=== PATIENT | female | born 1930 | race Caucasian/White ===

== ENCOUNTER 2016-05-31 08:00 | Outpatient (RCR) | payer MEDICARE, OTHER ==
[2016-05-28 07:46] VITALS: BP 108/92; PULSE 43; TEMP 98
[2016-05-29 06:41] VITALS: BP 98/80; PULSE 59; TEMP 98.1
[2016-05-30 07:56] VITALS: BP 108/48; PULSE 55; TEMP 97.9
[~2016-05-31] VITALS: Ht 152.4 cm; Wt 70.5 kg
[~2016-05-31 08:00] MED LIST: ALDACTONE50 MG PO; ALEVE 220MG220 MG PO; ALLOPURINOL300 MG PO; ALPHAGAN OPHTH D5 ML OP; AMOXICILLIN 8751 TAB PO; ARICEPT 5MG PO; ASPI325T6 PO; ASPIR-LOW81 MG PO; ASPIRIN 81M81 MG/TA2 PO; ATENOLOL25 MG PO; ATIVAN 0.50.5 MG/TAB PO; AZO-CRANBERRY450 MG PO; BENADRYL25 M2 PO; CEFTIN500 MG PO; CELEXA10 MG PO; CENTRUM SILVER1 TA1 PO; CIPRO 500MG TA500 MG PO; CLARITIN 1010 MG/TAB PO; COLACE 100100 MG/CAP PO; COMPLETE SENIOR1 TA1 PO; COREG12.5 MG PO; CRANBERRY1 CAP PO; CRANBERRY1 POW PO; CRANBERRY400 MG PO; CRANBERRY450 MG PO; CRESTOR5 MG PO; DITROPAN 5MG TAB5 MG PO; DULCOLAX TAB5 MG PO; ESTRADIOL VAG VG; FLOVENT DI50 MCG/Act NS; HEPARIN LOCK FLU5 M1 IV; HYDROCORTISO28.35 GM TP; INVANZ INJ1 G/VIAL IV; LASIX 20MG TABL20 MG PO; LEVAQUIN 5500 MG/TA1 PO; LEVAQUIN 750MG750 M1 PO; LEVSIN0.125 M1 PO; LEXAPRO 10MG10 MG PO; LOTEMAX 5 ML 5 M5 ML OD; LOTEMAX 5 ML 5 M5 ML OU; MACROBID 1100 MG/CAP; MACROBID 1100 MG/CAP PO; MIRALAX PA17 GM/Dose PO; NEURONTIN300 MG/CAP PO; NEXIUM40 MG PO; NITROSTAT0.4 MG/TAB SL; NORCO 325 MG-51 TAB PO; NORCO 325 MG-7.1 TAB PO; NS INT FLUSH 1010 ML IV; PAMELOR 10MG10 MG PO; PRAVACHOL 40MG40 MG PO; PRED FORTE 1 ML1 ML OU; PREDNISONE20 MG PO; PRILOSEC 20MG20 MG PO; PRINIVIL10 MG PO; PROBIOTIC-MAJOR PO; PYRIDIUM 100MG100 MG PO; TERAZOL0.4% VG; TYLENOL 500MG500 MG PO; TYLENOL EXTRA500 M1 PO; ULTRAM 50MG TAB50 MG PO; ULTRAM50 MG PO; VANTIN100 MG PO; VESICARE PO; ZETIA 10MG TAB10 MG PO; ZOCOR 40MG40 MG PO; ZOFRAN ODT4 MG PO; ZYLOPRIM 300MG300 MG PO
[2016-05-31 08:30] VITALS: BP 11/54; PULSE 59; TEMP 98.3
[2016-06-03] MEDS ORDERED: ULTRAM 50MG TAB50 MG PO (14:03)
[2016-06-03] MEDS ORDERED: TERAZOL0.4% VG (14:14)
[2016-06-03] MEDS ORDERED: VESICARE 5MG5 MG PO (14:14)
[2016-06-03] MEDS ORDERED: MOTRIN 200200 MG/TAB PO (14:43)
[2016-06-03] MEDS ORDERED: PYRIDIUM 100MG100 MG PO (17:28)
[2016-06-03] MEDS ORDERED: NORCO 325 MG-51 TAB PO (17:29)
[2016-07-13] MEDS ORDERED: MAGNESIUM CITR100 MG (13:52)
[2016-07-15] MEDS ORDERED: PROAIR HFA0.09 MG/AC IH (08:03)
[2016-07-15] MEDS ORDERED: CEFTIN500 MG PO (10:33)
[2016-07-15] MEDS ORDERED: ZYVOX 600MG600 MG PO (15:29)
[2016-09-17] MEDS ORDERED: FLONASE NASAL S16 GM NS (10:06)
[2016-09-17] MEDS ORDERED: PYRIDIUM 100MG100 MG PO (10:11)
[2016-09-19] MEDS ORDERED: VANCOCIN HCL1 GM IV (10:56)
== END 2016-08-26 | disposition still patient (30) ==
LOC: EUO
DX: N39.0 Urinary tract infection, site not specified (principal); Z79.2 Long term (current) use of antibiotics
CPT/HCPCS: J0696

== ENCOUNTER → 2016-09-10 | Outpatient (CLI) | payer MEDICARE, OTHER ==
[~2016-09-10] MED LIST changes: +FLONASE NASAL S16 GM NS; +MAGNESIUM CITR100 MG; +MOTRIN 200200 MG/TAB PO; +PROAIR HFA0.09 MG/AC IH; +VANCOCIN HCL1 GM IV; +VESICARE 5MG5 MG PO; +ZYVOX 600MG600 MG PO
[2016-09-10 17:58] LABS: PH 6 (5-8); SQUAMOUS EPITHELIAL 0-2 /hpf; URINE APPEARANCE Clear; URINE BACTERIA Rare /hpf; URINE BILIRUBIN Negative (NEGATIVE); URINE BLOOD 3+ (NEGATIVE); URINE COLOR Straw; URINE GLUCOSE Negative (NEGATIVE); URINE KETONE Negative (NEGATIVE); URINE UROBILINOGEN Negative (NEGATIVE); URINE WBC 20-50 /hpf
== END ==
LOC: ZCOL.LAB 16:10
PROVIDERS: Nurse Practitioner Family
DX: N39.0 Urinary tract infection, site not specified (principal)

== ENCOUNTER 2016-09-26 13:00 | Outpatient (RCR) | payer MEDICARE, OTHER ==
[2016-09-15 15:40] VITALS: BP 120/56; PULSE 85; TEMP 98.1
[2016-09-15 16:41] LABS: CALCIUM 9.3 mg/dL (8.4-10.2); CREATININE, serum 1.31 mg/dL (0.52-1.25); POTASSIUM 4.6 mmol/L (3.4-5.0)
[2016-09-16 11:15] VITALS: BP 107/50; PULSE 80; TEMP 98.8
[2016-09-17 10:51] VITALS: BP 107/63; PULSE 45; TEMP 98.4
[2016-09-18 12:10] VITALS: BP 116/44; PULSE 55; TEMP 98.5
[2016-09-19 10:30] VITALS: BP 157/57; PULSE 59; TEMP 97.7
[2016-09-20 08:07] VITALS: BP 110/48; PULSE 55; TEMP 98.4
[2016-09-21 08:07] VITALS: BP 118/63; BP 120/63; PULSE 54; PULSE 77; TEMP 98.4; TEMP 98.5
[~2016-09-26] VITALS: Ht 154.9 cm; Wt 68.0 kg
[2016-09-26 13:10] VITALS: BP 120/54; PULSE 60; TEMP 98.2
== END 2016-09-26 14:00 | disposition home or self-care (01) ==
LOC: EUO 13:00
PROVIDERS: Urology
DX: Z45.2 Encounter for adjustment and management of vascular access device (principal); N39.0 Urinary tract infection, site not specified; Z79.2 Long term (current) use of antibiotics; I51.7 Cardiomegaly; J98.11 Atelectasis
CPT/HCPCS: C1751; J1644; J3370; J7050

== ENCOUNTER → 2016-11-18 | Day surgery (SDC) | payer MEDICARE, OTHER ==
[2016-11-18 10:59] VITALS: BP 122/61; PULSE 54; TEMP 98
[2016-11-18 11:48] VITALS: BP 148/92; PULSE 56; TEMP 97.5
[2016-11-18 12:00] VITALS: BP 154/63; PULSE 56
[2016-11-18 12:15] VITALS: BP 141/67; PULSE 64
[2016-11-18 12:30] VITALS: BP 114/55; PULSE 50
[2016-11-18 13:00] VITALS: BP 115/46; PULSE 54
== END ==
LOC: SDCO 07:30
DX: N13.5 Crossing vessel and stricture of ureter without hydronephrosis (principal); Z90.5 Acquired absence of kidney; E11.9 Type 2 diabetes mellitus without complications; Z85.828 Personal history of other malignant neoplasm of skin; N39.3 Stress incontinence (female) (male)
CPT/HCPCS: C2617; J0690; J2704; J3010; J7030

== ENCOUNTER 2017-05-13 14:20 | Day surgery (SDC) | payer MEDICARE, OTHER ==
[~2017-05-13] VITALS: Ht 154.9 cm; Wt 69.0 kg
[2017-05-13 15:35] VITALS: BP 151/76; PULSE 66; TEMP 98.3
[2017-05-13] MEDS ORDERED: CRANBERRY500 M3 PO (15:59)
[2017-05-13] MEDS ORDERED: COLACE 100100 MG/CAP PO (16:00)
[2017-05-13] MEDS ORDERED: CEPHALEXIN250 M1 PO (16:01)
[2017-05-13 16:55] VITALS: BP 137/58; PULSE 63; TEMP 97.4
[2017-05-13 17:10] VITALS: BP 125/88; PULSE 66
[2017-05-13 17:25] VITALS: BP 139/61; PULSE 64
[2017-05-13] MEDS ORDERED: LEVAQUIN 5500 MG/TA1 PO (17:27)
== END 2017-05-13 18:00 | disposition home or self-care (01) ==
LOC: SDCO 14:20
DX: N13.5 Crossing vessel and stricture of ureter without hydronephrosis (principal); I25.10 Atherosclerotic heart disease of native coronary artery without angina pectoris; E11.9 Type 2 diabetes mellitus without complications; I35.8 Other nonrheumatic aortic valve disorders; M10.9 Gout, unspecified; F03.90 Unspecified dementia, unspecified severity, without behavioral disturbance, psychotic disturbance, mood disturbance, and anxiety; I10 Essential (primary) hypertension; E78.5 Hyperlipidemia, unspecified; I25.2 Old myocardial infarction; E67.8 Other specified hyperalimentation; K21.9 Gastro-esophageal reflux disease without esophagitis; M35.3 Polymyalgia rheumatica; Z85.850 Personal history of malignant neoplasm of thyroid; Z95.5 Presence of coronary angioplasty implant and graft; Z90.49 Acquired absence of other specified parts of digestive tract; Z90.710 Acquired absence of both cervix and uterus; Z90.5 Acquired absence of kidney; Z85.828 Personal history of other malignant neoplasm of skin; Z82.49 Family history of ischemic heart disease and other diseases of the circulatory system; Z83.3 Family history of diabetes mellitus; Z82.5 Family history of asthma and other chronic lower respiratory diseases
CPT/HCPCS: C1769; C2617; J0690; J2405; J2704; J3010; J7120

== ENCOUNTER 2017-07-08 08:43 | Emergency (ER) | payer MEDICARE, OTHER ==
[~2017-07-08] VITALS: Ht 157.5 cm; Wt 68.2 kg
[~2017-07-08 08:43] MED LIST changes: +CEPHALEXIN250 M1 PO; +CRANBERRY500 M3 PO
[2017-07-08 08:45] VITALS: TEMP 98.4
[2017-07-08 09:19] LABS: COLLECTION METHOD CLEAN CATCH
[2017-07-08 09:32] LABS: PH 7 (5-8); SQUAMOUS EPITHELIAL 0-2 /hpf; URINE APPEARANCE Clear; URINE BACTERIA None Seen /hpf; URINE BILIRUBIN Negative (NEGATIVE); URINE BLOOD 2+ (NEGATIVE); URINE COLOR Straw; URINE GLUCOSE Negative (NEGATIVE); URINE KETONE Negative (NEGATIVE); URINE LEUKOCYTE ESTERASE Negative (NEGATIVE); URINE PROTEIN(semi-quant) Negative (NEGATIVE); URINE UROBILINOGEN Negative (NEGATIVE)
[2017-07-08 09:35] LABS: BASO % 0.7 % (0.0-2.0); EOS # 0.1 (0.0-0.7); EOS % 3.2 % (0-4.0); GRAN # 2.3 (1.4-6.5); GRAN % 56.1 % (42.2-75.2); HEMATOCRIT 37.6 % (37.0-47.0); HEMOGLOBIN 12.5 g/dl (12.5-16.0); LYMPH # 1.2 (1.2-3.4); LYMPH % 30.2 % (20.0-51.0); MEAN CELL VOLUME 89 fl (80.0-100.0); MEAN CORPUSCULAR HEMOGLOBIN 30 pg (27.0-31.0); MEAN CORPUSCULAR HGB CONC 33 g/dl (33.0-37.0); MEAN PLATELET VOLUME 9.2 fl (7.4-10.4); MONO # 0.4 (0.1-0.6); MONO % 9.6 % (1.7-9.3); PLATELET COUNT 129 K/mm3 (130-400); RED BLOOD COUNT 4.21 M/mm3 (4.10-5.30); WHITE BLOOD COUNT 4.1 K/mm3 (4.8-10.8)
[2017-07-08 09:45] LABS: ADJUSTED CALCIUM 9.4 mg/dL (8.4-10.2); ALANINE AMINOTRANSFERASE 30 U/L (9-52); ALBUMIN 4.2 gm/dL (3.5-5.0); ALKALINE PHOSPHATASE 83 U/L (50-136); ANION GAP 8 mmol/L (7-16); BILIRUBIN,TOTAL 0.4 mg/dL (0.0-1.0); BLOOD UREA NITROGEN 21 mg/dL (7-17); CALCIUM 9.6 mg/dL (8.4-10.2); CARBON DIOXIDE 27 mmol/L (22-30); CHLORIDE 98 mmol/L (98-107); CREATININE, serum 0.98 mg/dL (0.52-1.25); GLUCOSE 91 mg/dL (74-106); POTASSIUM 4.6 mmol/L (3.4-5.0); SODIUM 133 mmol/L (137-145); TOTAL PROTEIN 6.3 gm/dL (6.4-8.2)
[2017-07-08 09:56] LABS: TROPONIN-I < 0.012 ng/mL (0.000-0.034)
[2017-07-08] MEDS ORDERED: LEVSIN 0.10.125 MG/T PO (10:37)
[2017-07-08 12:58] VITALS: BP 133/60; PULSE 56
== END 2017-07-08 12:58 | disposition home or self-care (01) ==
LOC: COL.ER 08:43
PROVIDERS: Emergency Medicine
DX: R20.0 Anesthesia of skin (principal); R10.30 Lower abdominal pain, unspecified; E11.9 Type 2 diabetes mellitus without complications; I10 Essential (primary) hypertension; I25.10 Atherosclerotic heart disease of native coronary artery without angina pectoris; E78.5 Hyperlipidemia, unspecified; F03.90 Unspecified dementia, unspecified severity, without behavioral disturbance, psychotic disturbance, mood disturbance, and anxiety; Z79.82 Long term (current) use of aspirin; Z96.0 Presence of urogenital implants; Z90.5 Acquired absence of kidney

== ENCOUNTER 2018-03-09 13:13 | Day surgery (SDC) | payer MEDICARE, OTHER ==
[~2018-03-09] VITALS: Ht 154.9 cm; Wt 67.3 kg
[~2018-03-09 13:13] MED LIST changes: +CENTRUM SILVER1 TAB PO; +COREG 6.256.25 MG/TA PO; +LEVSIN 0.10.125 MG/T PO; +PRIL40 PO
[2018-03-09] MEDS ORDERED: NEURONTIN100 MG/CAP PO (13:58)
[2018-03-09] MEDS ORDERED: MYRBETR50MG PO (13:59)
[2018-03-09] MEDS ORDERED: ATIVAN 0.50.5 MG/TAB PO (14:07)
[2018-03-09] MEDS ORDERED: ASPIRIN 32325 MG/TAB PO (14:12)
[2018-03-09] MEDS ORDERED: CEPHALEXIN250 M1 PO (14:19)
[2018-03-09 14:32] VITALS: BP 126/76; PULSE 65; TEMP 98.4
[2018-03-09 15:35] VITALS: BP 134/56; PULSE 70; TEMP 98.8
[2018-03-09 15:50] VITALS: BP 117/69; PULSE 69
[2018-03-09 16:05] VITALS: BP 129/56; PULSE 69
[2018-03-09 16:20] VITALS: BP 130/53; PULSE 67
[2018-03-09 16:35] VITALS: BP 125/47; PULSE 72
[2018-03-09] MEDS ORDERED: CEPHALEXIN500 M1 PO (16:46)
[2018-03-09] MEDS ORDERED: PYRIDIUM 100MG100 MG PO (16:46)
== END 2018-03-09 17:00 | disposition home or self-care (01) ==
LOC: SDCO 13:13
DX: N13.1 Hydronephrosis with ureteral stricture, not elsewhere classified (principal); I25.10 Atherosclerotic heart disease of native coronary artery without angina pectoris; E11.9 Type 2 diabetes mellitus without complications; M10.9 Gout, unspecified; E78.5 Hyperlipidemia, unspecified; E67.8 Other specified hyperalimentation; I25.2 Old myocardial infarction; K21.9 Gastro-esophageal reflux disease without esophagitis; M35.3 Polymyalgia rheumatica; M19.90 Unspecified osteoarthritis, unspecified site; G43.909 Migraine, unspecified, not intractable, without status migrainosus; F03.90 Unspecified dementia, unspecified severity, without behavioral disturbance, psychotic disturbance, mood disturbance, and anxiety; I35.8 Other nonrheumatic aortic valve disorders; G89.29 Other chronic pain; Z90.49 Acquired absence of other specified parts of digestive tract; Z90.710 Acquired absence of both cervix and uterus; Z90.5 Acquired absence of kidney; Z88.1 Allergy status to other antibiotic agents; Z88.8 Allergy status to other drugs, medicaments and biological substances; Z88.0 Allergy status to penicillin; Z85.828 Personal history of other malignant neoplasm of skin; Z82.49 Family history of ischemic heart disease and other diseases of the circulatory system; Z83.3 Family history of diabetes mellitus; Z82.5 Family history of asthma and other chronic lower respiratory diseases
CPT/HCPCS: C1769; C2617; J0690; J2405; J2704; J3010; J7030

== ENCOUNTER → 2018-05-24 | Outpatient (CLI) | payer MEDICARE, OTHER ==
[~2018-05-24] MED LIST changes: +ASPIRIN 32325 MG/TAB PO; +CEPHALEXIN500 M1 PO; +MYRBETR50MG PO; +NEURONTIN100 MG/CAP PO
[2018-05-24 15:20] LABS: COLLECTION METHOD CLEAN CATCH
[2018-05-24 15:33] LABS: MUCOUS Present /lpf; PH 7 (5-8); SQUAMOUS EPITHELIAL 0-2 /hpf; URINE APPEARANCE Cloudy; URINE BACTERIA Rare /hpf; URINE BILIRUBIN Negative (NEGATIVE); URINE BLOOD Negative (NEGATIVE); URINE COLOR Yellow; URINE GLUCOSE Negative (NEGATIVE); URINE KETONE Negative (NEGATIVE); URINE LEUKOCYTE ESTERASE 3+ (NEGATIVE); URINE NITRATE Positive (NEGATIVE); URINE PROTEIN(semi-quant) Negative (NEGATIVE); URINE UROBILINOGEN Negative (NEGATIVE)
[2018-05-24 15:34] LABS: URINE WBC >50 /hpf
== END ==
LOC: ZCOL.LAB 15:13
PROVIDERS: Internal Medicine Infectious Disease
DX: N39.0 Urinary tract infection, site not specified (principal)

== ENCOUNTER 2018-09-24 14:49 | Emergency (ER) | payer MEDICARE, OTHER ==
[~2018-09-24] VITALS: Ht 157.5 cm; Wt 64.5 kg
[2018-09-24 14:59] VITALS: TEMP 99
[2018-09-24 15:47] LABS: BASO % 0.6 % (0.0-2.0); EOS # 0.1 (0.0-0.7); EOS % 1.3 % (0-4.0); GRAN # 4.5 (1.4-6.5); HEMATOCRIT 37.8 % (37.0-47.0); HEMOGLOBIN 12.5 g/dl (12.5-16.0); LYMPH % 15.8 % (20.0-51.0); MEAN CELL VOLUME 88 fl (80.0-100.0); MEAN CORPUSCULAR HEMOGLOBIN 29 pg (27.0-31.0); MEAN CORPUSCULAR HGB CONC 33 g/dl (33.0-37.0); MEAN PLATELET VOLUME 9.9 fl (7.4-10.4); MONO # 0.6 (0.1-0.6); PLATELET COUNT 146 K/mm3 (130-400); RED BLOOD COUNT 4.32 M/mm3 (4.10-5.30); REDCELL DISTRIBUTION WIDTH-CV 15.2 % (11.5-14.5)
[2018-09-24 15:59] LABS: ALANINE AMINOTRANSFERASE 19 U/L (9-52); ALBUMIN 4.1 gm/dL (3.5-5.0); ALKALINE PHOSPHATASE 99 U/L (50-136); ANION GAP 8 mmol/L (7-16); AST,SGOT 23 U/L (15-37); BILIRUBIN,TOTAL 0.6 mg/dL (0.0-1.0); BLOOD UREA NITROGEN 12 mg/dL (7-17); CALCIUM 9.9 mg/dL (8.4-10.2); CARBON DIOXIDE 28 mmol/L (22-30); CHLORIDE 96 mmol/L (98-107); CREATININE, serum 0.98 mg/dL (0.52-1.25); GLUCOSE 107 mg/dL (74-106); POTASSIUM 4.1 mmol/L (3.4-5.0); SODIUM 133 mmol/L (137-145)
[2018-09-24 16:11] LABS: TROPONIN-I < 0.012 ng/mL (0.000-0.035)
[2018-09-24 16:19] LABS: COLLECTION METHOD CLEAN CATCH
[2018-09-24 16:27] LABS: MUCOUS Present /lpf; PH 6 (5-8); SQUAMOUS EPITHELIAL None Seen /hpf; URINE APPEARANCE Hazy; URINE BACTERIA None Seen /hpf; URINE BILIRUBIN Negative (NEGATIVE); URINE BLOOD Negative (NEGATIVE); URINE COLOR Yellow; URINE GLUCOSE Negative (NEGATIVE); URINE KETONE Negative (NEGATIVE); URINE LEUKOCYTE ESTERASE 3+ (NEGATIVE); URINE NITRATE Negative (NEGATIVE); URINE PROTEIN(semi-quant) Negative (NEGATIVE); URINE UROBILINOGEN Negative (NEGATIVE)
[2018-09-24] MEDS ORDERED: OMNICEF 300MG300 MG PO ×3 (17:34→17:37)
[2018-09-24 18:44] VITALS: BP 133/63; PULSE 60
== END 2018-09-24 18:44 | disposition home or self-care (01) ==
LOC: COL.ER 14:49
PROVIDERS: Nurse Practitioner
DX: N39.0 Urinary tract infection, site not specified (principal); E11.9 Type 2 diabetes mellitus without complications; I10 Essential (primary) hypertension; Z79.82 Long term (current) use of aspirin
CPT/HCPCS: A4216; J0696; J7030

== ENCOUNTER 2018-10-10 21:44 | Inpatient (IN) | payer MEDICARE ==
[~2018-10-10] VITALS: Ht 154.9 cm; Wt 74.7 kg
[~2018-10-10 21:44] MED LIST changes: +MYRBETR25MG PO; -MYRBETR50MG PO; +OMNICEF 300MG300 MG PO
[2018-10-10 22:26] LABS: BASO # 0.1 (0.0-0.2); BASO % 0.7 % (0.0-2.0); EOS # 0.2 (0.0-0.7); EOS % 2.7 % (0-4.0); GRAN # 3.7 (1.4-6.5); GRAN % 55.4 % (42.2-75.2); HEMOGLOBIN 11.4 g/dl (12.5-16.0); LYMPH # 2.2 (1.2-3.4); LYMPH % 32.2 % (20.0-51.0); MEAN CELL VOLUME 88 fl (80.0-100.0); MEAN CORPUSCULAR HEMOGLOBIN 29 pg (27.0-31.0); MEAN CORPUSCULAR HGB CONC 33 g/dl (33.0-37.0); MEAN PLATELET VOLUME 9.7 fl (7.4-10.4); MONO # 0.6 (0.1-0.6); MONO % 8.7 % (1.7-9.3); PLATELET COUNT 136 K/mm3 (130-400); RED BLOOD COUNT 3.93 M/mm3 (4.10-5.30)
[2018-10-10 22:27] LABS: HEMATOCRIT 34.5 % (37.0-47.0)
[2018-10-10] MEDS ORDERED: CEFTIN 250250 MG/TAB PO (22:35)
[2018-10-10 22:37] LABS: ALANINE AMINOTRANSFERASE 17 U/L (9-52); ALBUMIN 3.8 gm/dL (3.5-5.0); ALKALINE PHOSPHATASE 78 U/L (50-136); ANION GAP 9 mmol/L (7-16); AST,SGOT 21 U/L (15-37); BILIRUBIN,TOTAL 0.2 mg/dL (0.0-1.0); BLOOD UREA NITROGEN 21 mg/dL (7-17); CALCIUM 9.9 mg/dL (8.4-10.2); CARBON DIOXIDE 29 mmol/L (22-30); CHLORIDE 96 mmol/L (98-107); CREATININE, serum 1.12 mg/dL (0.52-1.25); GLUCOSE 91 mg/dL (74-106); LIPASE 184 U/L (23-300); POTASSIUM 4.1 mmol/L (3.4-5.0); SODIUM 134 mmol/L (137-145); TOTAL PROTEIN 6.4 gm/dL (6.4-8.2)
[2018-10-10 22:38] LABS: C-REACTIVE PROTEIN < 0.5 mg/dL (0.0-0.9)
[2018-10-10 22:40] LABS: COLLECTION METHOD CATHETER
[2018-10-10 22:46] LABS: TROPONIN-I < 0.012 ng/mL (0.000-0.035)
[2018-10-10 22:49] LABS: PH 6 (5-8); SQUAMOUS EPITHELIAL None Seen /hpf; URINE APPEARANCE Hazy; URINE BACTERIA Rare /hpf; URINE BILIRUBIN Negative (NEGATIVE); URINE BLOOD 2+ (NEGATIVE); URINE CALCIUM OXALATE CRYSTAL Present /hpf; URINE COLOR Yellow; URINE GLUCOSE Negative (NEGATIVE); URINE KETONE Negative (NEGATIVE); URINE LEUKOCYTE ESTERASE 2+ (NEGATIVE); URINE NITRATE Negative (NEGATIVE); URINE PROTEIN(semi-quant) Negative (NEGATIVE); URINE UROBILINOGEN Negative (NEGATIVE)
[2018-10-10] MEDS ORDERED: IMODIUM 2MG CAPS2 MG PO (23:05)
[2018-10-10] MEDS ORDERED: ATIVAN 0.50.5 MG/TAB PO (23:07)
[2018-10-10] MEDS ORDERED: GOOD SENSE400 MG/5 M PO (23:09)
[2018-10-10] MEDS ORDERED: ALMACONE 360 M360 ML PO (23:10)
[2018-10-11] VITALS (7 sets, daily range): BP systolic 115–154; BP diastolic 47–60; PULSE 57–70; TEMP 97.5–98.6
--- NOTE | 2018-10-11 01:51 | NUR ---
PT ARRIVED FROM ER VIA [facility]ARY, A/O X3. PT HAS LIMITED MEMORY. PT ADVISED THAT SHE DOES NOT REMEMBER WHY SHE CALLED TO COME TO THE ER. PT ADVISES THAT SHE HAS ONLY ONE KIDNEY, NO CONTROL OVER BLADDER, DOES NOT KNOW WHY KIDNEY WAS REMOVED. PT ALSO ADVISES THAT SHE HAD SHINGLES BACK AROUND JOHN TIME. PT STATED THAT IT WAS SEPTEMBER AND THEN FORGOT WHAT MONTH IT WAS. PT ASK ME WHAT MONTH IS IT NOW. PT HAS NO FAMILY IN [place]. HAS A [id number] IN [place], [place]. PT IS VERY PLEASANT AND COOPERATIVE. NO SKIN ISSUES NOTED. PT WAS PLACED ON 1L/NC BECAUSE O2 DROPPED WHEN FELL ASLEEP PER ER NURSE. NO NEEDS OR CONCERNS AT THIS TIME. CALL LIGHT IN REACH AND BED ALARM PLACED ON. PT WANTS EXTRA PADDING UNDERNEATH HER BECAUSE SHE NEVER KNOWS WHEN SHE URINATES, ALSO PREFERS ALL 4 BED RAILS UP, SHE FEELS SAFER. PT WAS ADVISED THAT BED ALARM WAS PUT ON AND SHE THOUGHT THAT WAS A GOOD IDEA.
[2018-10-11] MEDS ORDERED: TYLENOL 325MG325 MG PO (02:47)
[2018-10-11] MEDS ORDERED: MYLANTA 150 ML150 M1 PO (03:22)
--- NOTE | 2018-10-11 05:21 | NUR ---
PT IN BED RESTING/SLEEPING. PT REFUSED MELATONIN. PT ADVISED THAT SHE NEVER TOOK IT BEFORE AND WANTED TO WAIT TILL TOMORROW TO TAKE IT OR LATER THIS EVENING AT BEDTIME. PT DENIES PAIN OR DISCOMFORT. EXPLAINED TO PT THAT WE WILL BE DOING NEURO CHECKS EVERY 4 HOURS. PT WAS COLD, PLACED WARM BLANKET ON PT. PT HAS NO FURTHER NEEDS AT THIS TIME, CALL LIGHT WITHIN REACH.
--- NOTE | 2018-10-11 06:01 | NUR ---
CALLED DR. AL ON CELL PHONE AND LEFT MESSAGE TO CALL BACK FOR CONSULT.
[2018-10-11 06:07] LABS: BASO % 0.6 % (0.0-2.0); EOS # 0.2 (0.0-0.7); EOS % 4.2 % (0-4.0); GRAN # 2.7 (1.4-6.5); GRAN % 55.5 % (42.2-75.2); HEMOGLOBIN 11.1 g/dl (12.5-16.0); LYMPH # 1.3 (1.2-3.4); LYMPH % 27.9 % (20.0-51.0); MEAN CELL VOLUME 89 fl (80.0-100.0); MEAN CORPUSCULAR HEMOGLOBIN 29 pg (27.0-31.0); MEAN CORPUSCULAR HGB CONC 33 g/dl (33.0-37.0); MEAN PLATELET VOLUME 10.3 fl (7.4-10.4); MONO # 0.6 (0.1-0.6); MONO % 11.4 % (1.7-9.3); PLATELET COUNT 141 K/mm3 (130-400); RED BLOOD COUNT 3.79 M/mm3 (4.10-5.30); REDCELL DISTRIBUTION WIDTH-CV 15.2 % (11.5-14.5)
[2018-10-11 06:12] LABS: HEMATOCRIT 33.7 % (37.0-47.0)
[2018-10-11 06:20] LABS: CALCIUM 9.2 mg/dL (8.4-10.2); CREATININE, serum 0.95 mg/dL (0.52-1.25); POTASSIUM 3.9 mmol/L (3.4-5.0)
--- NOTE | 2018-10-11 06:56 | NUR ---
UNEVENTFUL NIGHT, PT STAYED IN BED AND SLEPT/RESTED, WITH NO C/O PAIN OR DISCOMFORT. CALL LIGHT IN REACH AND BED ALARM ON.
--- NOTE | 2018-10-11 09:50 | NUR ---
Pt is A+Ox3 and very pleasant but a poor historian. Physical assessment complete, IV to LFA free of redness, swelling, fluids infusing. Pt c/o ache under left breast that makes her slightly SOB, this RN informed Margaret CANNON. Pt also c/o ache in hips, adn states the breast.torso pain occurs with past infections. No further needs, call light in reach
--- NOTE | 2018-10-11 14:37 | NUR ---
PEDRO met with patient and raji's daughter about discharge planning. Patient lives at [facility]. Her PCP is Dr Lang and she obtains prescriptions from [facility]. Patient uses a walker for ambulation but no other DME is reported. Patient has used [facility] home health in the past but does not currently use their services. SW inquired if patient would be interested in getting home health services again. Patient and daughter reports they would be agreeable to that. PEDRO will continue to follow.
--- NOTE | 2018-10-11 19:36 | NUR ---
tHROUGH shfit pt vitals remained stable, she denies burning with urination, denied chest pain after initial complaint which resolved. INT to RFA free of redness and swelling. pt on RA with no SOB. She sat up in chair for several hours, had one incontinent upisode with breif change. Procedure scheduled for tomorrow, she is aware. Prune juice provided for c/o constipation. Report given to Perla AVINA, pt resting, no further needs
--- NOTE | 2018-10-11 19:38 | NUR ---
This RN spoke with Dr Vargas about consult, he stated he would defer the consult to Dr mcarthur considering procedure scheduled for 10/12. no further needs
--- NOTE | 2018-10-11 20:16 | NUR ---
PT IN BED AND A/O 3, IS VERY FORGETFUL. PT DENIES PAIN OR DISCOMFORT. PT IS WORRIED THAT SHE IS GOING TO LOOSE HER OTHER KIDNEY. PT IS AWARE SHE IS GOING TO GET STENT PLACEMENT TOMORROW. PT HAS BED ALARM ON. NO NEEDS AT THIS TIME. CALL LIGHT WITHIN REACH.
[2018-10-12 03:13] VITALS: BP 122/47; PULSE 63; TEMP 97.4
--- NOTE | 2018-10-12 04:20 | NUR ---
PT HAS BEEN RESTING/SLEEPING MOST OF NIGHT. EARLIER IN SHIFT WHEN PT WAS TAKEN TO BATHROOM, WAS INCONTINENT AND HAD A PINK COLOR IN BRIEF. PT WAS GIVEN A SMALL SNACK AFTER MIDNIGHT BECAUSE BLOOD GLUCOSE 91 AND PT FELT NERVOUS. PT FELT BETTER AFTER SNACK AND WAS ABLE TO SLEEP AND RELAX. PT ADVISED THAT HER FEAR IS IF SHE LOOSES HER OTHER KIDNEY, SHE DOES NOT KNOW WHAT TO DO. PT DENIES PAIN OR DISCOMFORT AND HAS BEEN VERY PLEASANT AND COOPERATIVE. PT DOES NOT WANT TO WEAR THE SCDs BECAUSE IT MAKES HER FEEL TOO RESTRICTED AND CAUSED HER TO HAVE SOME ANXIETY. REMOVED SCDs AT PT'S REQUEST. CALL LIGHT IN REACH AND BED ALARM ON.
--- NOTE | 2018-10-12 06:09 | NUR ---
ASSISTED PT TO BATHROOM, DUE TO INCONTINENCE OF URINE. BEDPAD, GOWN, AND BRIEF SOCKED, CHANGED PT. PT AMBULATED USING WALKER, GAIT STEADY. PT ADVISED THAT HER URINE IS A FUNNY COLOR, DUE TO A MEDICATION THAT SHE IS TAKING, BUT SHE DOES NOT KNOW THE NAME OF THE MEDICATION. PT WAS ASSISTED BACK TO BED ONCE BEDPAD, GOWN, AND BRIEF CHANGED. BELIA CARE WAS PERFORMED. PT IS NOW IN BED WITH HOB FLAT SHE REQUEST. ALSO STILL HAS O2 ON AT 1L/NC. OXYGEN PLACED ON PT DURING THE NIGHT DUE TO O2 SATS DROPPING DOWN TO 89% WHEN PT WAS SLEEPING/RESTING. CALL LIGHT IN REACH AND BED ALARM ON.
--- NOTE | 2018-10-12 07:00 | NUR ---
Reported onto KAILYN Garcia
--- NOTE | 2018-10-12 07:15 | NUR ---
Pt is resting on left side this morning, stating she is only comfortable in that position. Stated rested well through the night with one incontinent episode. Telemetry leads in place, oxygen via nc at 1L, INT to left forearm. c/o leg pain, and headache when moving head side to side and behind eyes. c/o stomach aching "all over and it never goes away" upon standing experienced severe nausea and dizziness, this was resolved with sitting and sips of water. Given crackers and diet sprite to calm stomach after returning from bathroom. Pt reported headache resolves w/ rest. Call light within reach, no further needs at this time.
[2018-10-12 08:00] VITALS: BP 152/67; PULSE 52; TEMP 98.3
--- NOTE | 2018-10-12 09:34 | NUR ---
Pt is awake and A/Ox4, slightly forgetful at times. She does state she has some discomfort but it is getting better post tramadol administration. Saline lock to left FA is free of complications. Pt is up with 1x assist + walker. Daughter is at bedside, updated on plan of care. Denies any other needs, will monitor.
--- NOTE | 2018-10-12 10:00 | NUR ---
pt ambulating in hallway w/ PT, after returning states her pain is 7/10, tramadol given at 0900 will rest and see if pain diminishes with warm blanket.
--- NOTE | 2018-10-12 10:55 | NUR ---
reassessed pain level after resting from PT, pain 10/31. States "I'm doing good" daughter sitting in room wanting to talk to doctor, no further needs at this time.
[2018-10-12 11:32] VITALS: BP 124/56; PULSE 58; TEMP 98.3
--- NOTE | 2018-10-12 11:46 | NUR ---
Reported off to KAILYN Garcia
--- NOTE | 2018-10-12 14:30 | NUR ---
IV to left FA found to be leaking, removed and catheter tip intact. New #22 started in right FA.
[2018-10-12] MEDS ORDERED: ZYVOX 600MG600 MG PO (16:21)
--- NOTE | 2018-10-12 16:42 | NUR ---
PEDRO faxed discharge orders to [facility].
--- NOTE | 2018-10-12 18:16 | NUR ---
Pt was discharged home from hospital. All discharge instructions and paperwork were reviewed with pt and her daughter, both expressed understanding and had no questions. Saline lock removed, catheter tip intact. New prescription sent to pharm. Pt was escorted out of facility by staff.
== END 2018-10-12 18:18 | disposition home health service (06) | DRG 690 ==
LOC: COL.ER 21:44 → MEDICAL 23:13
PROVIDERS: Emergency Medicine; Nurse Practitioner
DX: N39.0 Urinary tract infection, site not specified (principal); B95.2 Enterococcus as the cause of diseases classified elsewhere; I25.10 Atherosclerotic heart disease of native coronary artery without angina pectoris; I10 Essential (primary) hypertension; E78.5 Hyperlipidemia, unspecified; Z95.5 Presence of coronary angioplasty implant and graft; E11.9 Type 2 diabetes mellitus without complications; F03.90 Unspecified dementia, unspecified severity, without behavioral disturbance, psychotic disturbance, mood disturbance, and anxiety; Z90.5 Acquired absence of kidney
CPT/HCPCS: 99223-AI; 99239; A4216; J0696; J3370; J7030; J7050

== ENCOUNTER 2018-10-19 10:42 | Day surgery (SDC) | payer MEDICARE, OTHER | END 2018-10-19 16:15 | disposition home or self-care (01) | LOC: SDCO 10:42 | DX: N13.5 Crossing vessel and stricture of ureter without hydronephrosis (principal); N30.20 Other chronic cystitis without hematuria; Z90.5 Acquired absence of kidney; R35.0 Frequency of micturition; R32 Unspecified urinary incontinence; R30.0 Dysuria; I25.10 Atherosclerotic heart disease of native coronary artery without angina pectoris; K59.00 Constipation, unspecified; E11.9 Type 2 diabetes mellitus without complications; M10.9 Gout, unspecified; I10 Essential (primary) hypertension; E78.5 Hyperlipidemia, unspecified; E67.8 Other specified hyperalimentation; G89.29 Other chronic pain; M54.5 Low back pain; I25.2 Old myocardial infarction; M35.3 Polymyalgia rheumatica; N13.30 Unspecified hydronephrosis; K21.9 Gastro-esophageal reflux disease without esophagitis; Z90.710 Acquired absence of both cervix and uterus; Z85.828 Personal history of other malignant neoplasm of skin; Z79.82 Long term (current) use of aspirin; Z88.1 Allergy status to other antibiotic agents; Z88.8 Allergy status to other drugs, medicaments and biological substances; Z88.6 Allergy status to analgesic agent; Z88.0 Allergy status to penicillin ==

== ENCOUNTER → 2018-10-20 | Outpatient (CLI) | payer MEDICARE, OTHER ==
[~2018-10-20] MED LIST changes: +ALMACONE 360 M360 ML PO; +CEFTIN 250250 MG/TAB PO; +GOOD SENSE400 MG/5 M PO; +IMODIUM 2MG CAPS2 MG PO; +MYLANTA 150 ML150 M1 PO; +TYLENOL 325MG325 MG PO
== END ==
LOC: ZCOL.LAB 16:58
DX: R19.7 Diarrhea, unspecified (principal); R50.9 Fever, unspecified